=== PATIENT | female | born 1985 | race Caucasian/White ===

== ENCOUNTER 2017-04-02 13:10 | Emergency (ER) | payer SELFPAY ==
[~2017-04-02] VITALS: Ht 162.6 cm; Wt 70.3 kg
[~2017-04-02 13:10] MED LIST: AZTH250C PO; CLC500CT PO; DIPH25TA82 PO; FOLI0.4T2 PO; MULT-418 PO; NF-ESOM40C PO; OXYC-12 PO; PREN1TAB14 PO; PRM25T PO
[2017-04-02] MEDS ORDERED: NS IV 1000 ML 1,000 ML IV ONE (13:46)
[2017-04-02 13:49] LABS: BASOPHILS % (AUTO) 1 % (0-10); EOSINOPHILS # (AUTO) 0.5 10^3/uL (0.0-0.3); EOSINOPHILS % (AUTO) 8 % (0-10); LYMPHOCYTES # (AUTO) 2.1 X 10^3 (1.0-4.0); LYMPHOCYTES % (AUTO) 33 % (12-44); MEAN CORPUSCULAR HEMOGLOBIN 31 PG (25-34); MEAN CORPUSCULAR HGB CONC 34 G/DL (32-36); MEAN CORPUSCULAR VOLUME 92 FL (80-99); MEAN PLATELET VOLUME 10.6 FL (7.4-10.4); MONOCYTES # (AUTO) 0.5 X 10^3 (0.0-1.0); MONOCYTES % (AUTO) 7 % (0-12); NEUTROPHILS # (AUTO) 3.3 X 10^3 (1.8-7.8); NEUTROPHILS % (AUTO) 51 % (42-75); PLATELET COUNT 201 10^3/uL (130-400); RED BLOOD COUNT 4.46 10^6/uL (4.35-5.85); RED CELL DISTRIBUTION WIDTH 13.1 % (10.0-14.5); WHITE BLOOD COUNT 6.4 10^3/uL (4.3-11.0)
[2017-04-02 13:55] LABS: BILIRUBIN,URINE NEGATIVE (NEGATIVE); KETONES,URINE NEGATIVE (NEGATIVE); LEUKOCYTE ESTERASE ,URINE NEGATIVE (NEGATIVE); NITRITE,URINE NEGATIVE (NEGATIVE); PH,URINE 7 (5-9); PROTEIN,URINE NEGATIVE (NEGATIVE); UROBILINOGEN,URINE NORMAL (NORMAL)
[2017-04-02] MEDS ORDERED: KETOROLAC 30 MG/ML VIAL IVP ONE (14:00)
[2017-04-02] MEDS ORDERED: diphenhydrAMINE 50 MG/ML INJ (BENADRYL) IVP ONE (14:00)
[2017-04-02] MEDS ORDERED: PROCHLORPERAZINE 10 MG/2ML INJ (COMPAZINE) IV ONE (14:00)
[2017-04-02 14:11] LABS: ALANINE AMINOTRANSFERASE 15 U/L (0-55); ALBUMIN 4.2 GM/DL (3.2-4.5); ANION GAP 9 MMOL/L (5-14); ASPARTATE AMINO TRANSFERASE 23 U/L (5-34); BILIRUBIN,TOTAL 0.3 MG/DL (0.1-1.0); BLOOD UREA NITROGEN 15 MG/DL (7-18); BUN/CREATININE RATIO 18; CALCIUM 9.1 MG/DL (8.5-10.1); CARBON DIOXIDE 23 MMOL/L (21-32); CHLORIDE 109 MMOL/L (98-107); CREATININE SERUM 0.85 MG/DL (0.60-1.30); GFR ESTIMATED > 60; GLUCOSE 89 MG/DL (70-105); POTASSIUM 4.1 MMOL/L (3.6-5.0); SODIUM 141 MMOL/L (135-145); TOTAL PROTEIN 6.7 GM/DL (6.4-8.2)
--- NOTE | 2017-04-02 14:57 | Diagnostic Imaging Report ---
PROCEDURE: CT head without contrast. TECHNIQUE: Multiple contiguous axial images were obtained through the brain without the use of intravenous contrast. INDICATION: Headache. COMPARISON: 04/03/09. FINDINGS: The ventricles are normal in size, shape and position. There is no midline shift or mass effect. There is no hemorrhage or evidence acute ischemia. No cerebral edema identified. The bony calvarium, the visualized paranasal sinuses and the mastoids are normal. IMPRESSION: Negative CT head. Dictated by: Dictated on workstation # [id number]
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
[2017-04-02 15:47] VITALS: BP 113/80
== END 2017-04-02 15:47 | disposition home or self-care (01) ==
LOC: EDUNIT# 13:10 → ER 13:12
DX: R51 Headache (principal); F43.10 Post-traumatic stress disorder, unspecified; F17.210 Nicotine dependence, cigarettes, uncomplicated; Z87.42 Personal history of other diseases of the female genital tract; Z90.49 Acquired absence of other specified parts of digestive tract; Z98.51 Tubal ligation status; Z91.410 Personal history of adult physical and sexual abuse
CPT/HCPCS: 36415; 70450; 80053; 81000; 84703; 85025; 96361; 96374; 96375

== ENCOUNTER → 2017-10-12 | Outpatient (CLI) | payer MEDICAID ==
--- NOTE | 2017-10-12 14:33 | RADIOLOGY REPORT ---
NAME: FENG MIRANDA [facility] REC#: [id number] PT STATUS: REG CLI : 1985 PHYSICIAN: RONAL LIRIANO DO ADMIT DATE: 10/12/17/RAD CORRECTED Signed Date of Exam:10/12/17 US OB PREG [id number] INDICATION: survey. TECHNIQUE: Multiple real-time grayscale images were obtained over the gravid uterus. COMPARISON: None. FINDINGS: There is a single live fetus in a cephalic presentation. The placenta is posterior. The amniotic fluid volume is normal. heart rate was recorded at 153 beats per minute. The cervical length is 4.3 cm. survey demonstrates the kidneys, bladder and stomach to be unremarkable. brain is unremarkable. There is a four-chamber heart. There is a three-vessel cord with normal cord insertion. The spine is unremarkable. Biometrical measurements are as follows: Biparietal 4.6 cm, age 19 weeks 6 days. Head circumference 15.9 cm, age 19 weeks 6 days. Abdominal circumference 13.6 cm, age 19 weeks 1 days. Femur length 2.9 cm, age 19 weeks 0 days. Sonographic estimate age: 19 weeks 2 days. Sonographic estimated date of delivery: . Estimated Weight: 268 gm (+/- 39 gm). LMP percentile: 44%. heart rate: 153 beats per minute. number: 1 of 1. IMPRESSION: Single live IUP 19 weeks 2 days gestational age. The estimated date of delivery is 03/06/2018. Dictated by: Dictated on workstation # [id number] Dict: 10/12/17 1120 Trans: 10/12/17 1148 [id number] Interpreted by: JOSE ALFREDO BLANCAS MD Electronically signed by: JOSE ALFREDO BLANCAS MD 10/12/17 1148 MTDD
== END ==
LOC: RAD 09:52
PROVIDERS: ATTEND Obstetrics & Gynecology
DX: Z36.89 Encounter for other specified antenatal screening (principal); Z3A.19 19 weeks gestation of pregnancy
CPT/HCPCS: 76805

== ENCOUNTER 2017-11-02 16:58 | Outpatient (CLI) | payer MEDICAID ==
[~2017-11-02] VITALS: Ht 162.6 cm; Wt 76.2 kg
[2017-11-02 17:53] VITALS: BP 124/72
[2017-11-02] MEDS ORDERED: SERT50TA2 PO (18:07)
[2017-11-02] MEDS ORDERED: PNV11TAB5 PO (18:07)
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
[2017-11-02] MEDS ORDERED: INFLUENZA TRIvalent 2017-2018 0.5 ML/45 MCG SYR IM ONE (20:00)
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
== END 2017-11-02 19:25 | disposition home or self-care (01) ==
LOC: WSo 16:58 → LDRP 16:59 → WSo 19:25
PROVIDERS: ATTEND Obstetrics & Gynecology
DX: S39.91XA Unspecified injury of abdomen, initial encounter (principal); W50.1XXA Accidental kick by another person, initial encounter
CPT/HCPCS: 76815; 99213

== ENCOUNTER 2018-02-22 09:35 | Outpatient (CLI) | payer MEDICAID ==
[~2018-02-22] VITALS: Ht 162.6 cm; Wt 87.3 kg
[~2018-02-22 09:35] MED LIST changes: +PNV11TAB5 PO; +SERT50TA2 PO
[2018-02-22 09:40] VITALS: BP 127/82
--- NOTE | 2018-02-23 12:15 | Physician Query-Final Dx ---
MARQUITA HERNANDEZ 02/23/18 12:15pm: Clinic Account Progress/Dx Physician Query: Please give diagnosis Date of Service Feb 22, 2018 at 09:35 RONAL LIRIANO DO 02/24/18 2:48pm: Clinic Account Progress/Dx DIAGNOSIS: Diagnosis 37 + weeks of gestation previous section pelvic pain/incisional pain contractions MARQUITA HERNANDEZ Feb 23, 2018 12:15 pm RONAL LIRIANO DO Feb 24, 2018 2:48 pm
== END 2018-02-22 11:15 | disposition home or self-care (01) ==
LOC: LDRP 09:35 → WSo 09:35
PROVIDERS: ATTEND Obstetrics & Gynecology
DX: O47.1 False labor at or after 37 completed weeks of gestation (principal); O34.219 Maternal care for unspecified type scar from previous cesarean delivery; O99.89 Other specified diseases and conditions complicating pregnancy, childbirth and the puerperium; R10.2 Pelvic and perineal pain; Z3A.37 37 weeks gestation of pregnancy
CPT/HCPCS: 99213

== ENCOUNTER 2018-02-24 10:05 | Inpatient (IN) | payer MEDICAID ==
[~2018-02-24] VITALS: Ht 162.6 cm; Wt 87.1 kg
[2018-02-24 10:20] VITALS: BP 118/69
[2018-02-24] MEDS ORDERED: ceFAZolin INJECTION 1,000 MG in NS (IVPB) 50 ML IV ONE (10:45)
[2018-02-24] MEDS ORDERED: D5 LR IV SOLUTION 1,000 ML IV SCH ×2 (10:49→17:09)
[2018-02-24] MEDS ORDERED: D5 LR IV SOLUTION 1,000 ML IV ONE (10:53)
[2018-02-24] MEDS ORDERED: OMEP10CA4 PO ×2 (11:31)
[2018-02-24 11:35] LABS: BASOPHILS % (AUTO) 0 % (0-10); EOSINOPHILS # (AUTO) 0.3 10^3/uL (0.0-0.3); EOSINOPHILS % (AUTO) 3 % (0-10); HEMATOCRIT 35 % (35-52); HEMOGLOBIN 12.5 G/DL (11.5-16.0); LYMPHOCYTES % (AUTO) 18 % (12-44); MEAN CORPUSCULAR HEMOGLOBIN 31 PG (25-34); MEAN CORPUSCULAR HGB CONC 36 G/DL (32-36); MEAN CORPUSCULAR VOLUME 88 FL (80-99); MEAN PLATELET VOLUME 11.4 FL (7.4-10.4); MONOCYTES % (AUTO) 9 % (0-12); NEUTROPHILS # (AUTO) 7.5 X 10^3 (1.8-7.8); NEUTROPHILS % (AUTO) 70 % (42-75); PLATELET COUNT 154 10^3/uL (130-400); RED BLOOD COUNT 3.98 10^6/uL (4.35-5.85); RED CELL DISTRIBUTION WIDTH 13.6 % (10.0-14.5); WHITE BLOOD COUNT 10.8 10^3/uL (4.3-11.0)
[2018-02-24 14:45] VITALS: BP 118/67
[2018-02-24] MEDS ORDERED: ceFAZolin 1,000 MG (ANCEF) VIAL ONE (15:13)
[2018-02-24] MEDS ORDERED: NS (IVPB) 50 ML ONE (15:13)
[2018-02-24] MEDS ORDERED: METOCLOPRAMIDE INJ 10 MG/2 ML (REGLAN) ONE (15:13)
[2018-02-24] MEDS ORDERED: CITRIC ACID/SOB CIT (BICITRA) 30 ML UDC ONE (15:13)
[2018-02-24] MEDS ORDERED: raNItidine 50 MG/2 ML INJ (ZANTAC) ONE (15:14)
[2018-02-24 15:16] LABS: BILIRUBIN,URINE NEGATIVE (NEGATIVE); CLARITY,URINE CLEAR; COLOR,URINE YELLOW; GLUCOSE, URINE (UA) NEGATIVE (NEGATIVE); KETONES,URINE NEGATIVE (NEGATIVE); LEUKOCYTE ESTERASE ,URINE 3+ (NEGATIVE); NITRITE,URINE NEGATIVE (NEGATIVE); PH,URINE 7 (5-9); PROTEIN,URINE 1+ (NEGATIVE); UROBILINOGEN,URINE 1 MG/DL (NORMAL)
[2018-02-24 15:24] LABS: BACTERIA,URINE FEW /HPF; SQUAMOUS EPITHELIAL CELL,UR 0-2 /HPF; WBC,URINE 0-2 /HPF
[2018-02-24] MEDS ORDERED: fentaNYL INJECTION 100 MCG/2 ML AMP ONE (15:57)
[2018-02-24] MEDS ORDERED: LIDOCAINE PF 2% 5 ML (XYLOCAINE) VIAL ONE (15:57)
[2018-02-24] MEDS ORDERED: BUPIVACAINE 0.5% 30 ML (SENSORCAINE) VIAL ONE (15:57)
[2018-02-24] MEDS ORDERED: PHENYLEPHRINE 100 MCG/ML 10 ML (ANESTHESIA) SYR ONE (16:13)
[2018-02-24] MEDS ORDERED: OXYTOCIN/NORMAL SALINE 500 ML IV SCH (17:09)
[2018-02-24] MEDS ORDERED: TETANUS,DIPTH,PERTUSS P/F (BOOSTRIX) 0.5 ML VIAL IM SCH (17:15)
[2018-02-24] MEDS ORDERED: MEASLES,MUMPS,RUBELLA 1 EA INJ SC SCH (17:15)
--- NOTE | 2018-02-24 17:21 | Cesarean Section Operative ---
Procedure Procedure Note Pre-operative Diagnosis: Marybeth Batres is a 32 /Para 4/2 , Gestational Age 38 2/7 weeks, contractions, variable deceleration, risk reduction of ovarian cancer, history of previous section x 2. Post-operative Diagnosis: same, forehead presentation, chin anterior, vasa previa Procedure: Primary low transverse section, risk reduction tubal ligation Physician: RONAL LIRIANO Estimated blood loss: 500 mL Disposition: stable Findings: Viable male , Apgars 7/8, weight 7#, intact placenta, 3vc, very thin lower uterine segment with 2 cm window, forehead presentation, vasa previa, 4 cm right peritubal cyst and 2 small (subcentimeter peritubal cysts). Indications:Marybeth Batres is a 32 /Para 4/2 ,Gestational Age 38 2/ 7 weeks who presented for routine obstetrical visit and was complaining of contractions, had a variable deceleration so she was sent for repeat section. Has a history of section x desiring risk reduction of ovarian cancer. Procedure Details: The patient was seen in pre-op and the procedure was discussed with the patient in full, including the risks, benefits, and alternatives. All questions were answered. The patient was taken to the operating room and a time out was performed, verifying patient and procedure. After spinal anesthesia was placed by our anesthesia colleagues, the patient was placed in the dorsal supine with leftward tilt for uterine displacement.~ Her abdomen was then prepped and draped in the typical sterile fashion. A Pfannenstiel skin incision was made using a scalpel and carried down through the underlying fascia. The fascia was incised in the midline and tented up using Lidia clamps. On both the inferior and superior fascia side the rectus muscle was dissected off bluntly and sharply using Wills scissors. The peritoneum was identified and entered bluntly in the midline. This was then stretched laterally using manual strength. After entering the abdominal cavity and confirming lack of intraperitoneal adhesions, a large Ja retractor was placed and the lower uterine segment was visualized. the lower uterine segment was very thin. ~ A scalpel was utilized to make a low transverse uterine incision. The face was noted to be in the face up, forehead presentation. Amniotomy was performed with an Allis clamp with return of clear fluid. The infant's head was grasped and brought to the level of the incision. Fundal pressure was applied and infant was delivered with assistance of Silastic suction without difficulty. Mouth and nares were suctioned with bulb suction. After the umbilical cord was clamped and cut, the was handed off to the pediatric staff. A sample of cord blood was then obtained. The placenta was delivered intact via uterine massage. There was a vasa previa noted. The uterus was cleared of all clots and debris. The uterine incision was closed using 0 Vicryl in a running locked fashion. A second imbricated layer was placed using 0 Vicryl in a running fashion as well. T Again the hysterotomy site was examined and hemostasis was observed. The bilateral tubes and ovaries appeared as described above. A bilateral risk reduction salpingectomy was done. The tubes were elevated with rachna clamps bilaterally and the mesosalpinx incised with the Bovie. The LigaSure was used to remove the tubes bilaterally, transecting and ligating. The uterus was placed back into the abdominal cavity and abdominal gutters were cleared of all clots and debris. A final check of the uterine incision showed it to be hemostatic. The peritoneum was closed using 3-0 Vicryl in a running fashion. The fascia was closed with 0 Vicryl in a running fashion. The subcutaneous space was hemostatic, and irrigated. The subcutaneous space was closed with 3-0 Vicryl in several single interrupted stitches. The skin was then closed using 4-0 Monocryl in a running subcuticular fashion. The skin edges were reapproximated together with [place] and were hemostatic. A pressure dressing was applied. All sponge, lap and needle counts were correct at the end of the procedure per nursing. Vitals - Labs Labs Laboratory Tests 02/24/18 11:15: White Blood Count 10.8, Red Blood Count 3.98L, Hemoglobin 12.5, Hematocrit 35, Mean Corpuscular Volume 88, Mean Corpuscular Hemoglobin 31, Mean Corpuscular Hemoglobin Concent 36, Red Cell Distribution Width 13.6, Platelet Count 154, Mean Platelet Volume 11.4H, Neutrophils (%) (Auto) 70, Lymphocytes (%) (Auto) 18 , Monocytes (%) (Auto) 9, Eosinophils (%) (Auto) 3, Basophils (%) (Auto) 0, Neutrophils # (Auto) 7.5, Lymphocytes # (Auto) 2.0, Monocytes # (Auto) 1.0, Eosinophils # (Auto) 0.3, Basophils # (Auto) 0.0 02/24/18 14:30: Urine Color YELLOW, Urine Clarity CLEAR, Urine pH 7, Urine Specific [place] 1.015L, Urine Protein 1+H, Urine Glucose (UA) NEGATIVE, Urine Ketones NEGATIVE, Urine Nitrite NEGATIVE, Urine Bilirubin NEGATIVE, Urine Urobilinogen 1, Urine Leukocyte Esterase 3+H, Urine RBC (Auto) NEGATIVE, Urine RBC NONE, Urine WBC 0-2 , Urine Squamous Epithelial Cells 0-2, Urine Crystals NONE, Urine Bacteria FEWH , Urine Casts NONE, Urine Mucus NEGATIVE, Urine Culture Indicated NO RONAL LIRIANO DO Feb 24, 2018 17:21
[2018-02-24] MEDS: KETOROLAC 30 MG/ML VIAL IVP SCH (18:50)
[2018-02-24] MEDS ORDERED: LACTATED RINGERS 1,000 ML IV PRN (20:09)
[2018-02-24] MEDS: DOCUSATE SODIUM 100 MG (COLACE) CAP PO SCH (20:34)
[2018-02-24] MEDS: HYDROcodone/APAP 5 MG/325 MG (LORTAB) TAB PO PRN (20:35)
[2018-02-24 21:47] VITALS: BP 114/67
[2018-02-24] MEDS ORDERED: CATHETER FLUSH 10 ML SYR IV SCH (22:00)
[2018-02-25] MEDS: HYDROcodone/APAP 5 MG/325 MG (LORTAB) TAB PO PRN ×4 (00:37→19:00)
[2018-02-25] MEDS: KETOROLAC 30 MG/ML VIAL IVP SCH ×2 (00:53→06:54)
[2018-02-25 02:36] VITALS: BP 113/65
[2018-02-25 06:18] LABS: BASOPHILS % (AUTO) 0 % (0-10); EOSINOPHILS # (AUTO) 0.3 10^3/uL (0.0-0.3); EOSINOPHILS % (AUTO) 2 % (0-10); HEMATOCRIT 28 % (35-52); HEMOGLOBIN 10.1 G/DL (11.5-16.0); LYMPHOCYTES # (AUTO) 1.9 X 10^3 (1.0-4.0); LYMPHOCYTES % (AUTO) 17 % (12-44); MEAN CORPUSCULAR HEMOGLOBIN 32 PG (25-34); MEAN CORPUSCULAR HGB CONC 36 G/DL (32-36); MEAN CORPUSCULAR VOLUME 90 FL (80-99); MONOCYTES # (AUTO) 1.3 X 10^3 (0.0-1.0); MONOCYTES % (AUTO) 11 % (0-12); NEUTROPHILS # (AUTO) 7.8 X 10^3 (1.8-7.8); NEUTROPHILS % (AUTO) 69 % (42-75); PLATELET COUNT 121 10^3/uL (130-400); RED BLOOD COUNT 3.16 10^6/uL (4.35-5.85); RED CELL DISTRIBUTION WIDTH 13.3 % (10.0-14.5); WHITE BLOOD COUNT 11.3 10^3/uL (4.3-11.0)
[2018-02-25 06:27] VITALS: BP 103/65
--- NOTE | 2018-02-25 08:18 | Anesthesia-Regional Post-Op ---
Regional Patient Condition Mental Status: Alert, Oriented x3 Circulation: Same as Pre-Op Headache: Absent Sensation: Full Recovery Motor Block: Absent Post Op Complications Complications None Follow Up Care/Instructions Patient Instructions None needed. Anesthesia/Patient Condition Patient is doing well, ambulating, sore which is expected, has stable vital signs, no apparent adverse anesthesia problems. ROSANNA CASPER DO Feb 25, 2018 08:17
[2018-02-25] MEDS: DOCUSATE SODIUM 100 MG (COLACE) CAP PO SCH ×2 (09:29→21:29)
[2018-02-25 09:37] VITALS: BP 104/68
--- NOTE | 2018-02-25 09:58 | Postpartum Progress Note ---
Post Op Post-operative Day #1 s/pRLTCS, RRS Subjective: Patient is without complaints. Ambulating, voiding after welch removed. Tolerating a regular diet without nausea or vomiting. Normal lochia. Pain is well controlled with oral pain medications. Passing flatus. breast feeding. TAP block postop Objective: Laboratory Tests Test 02/24/18 11:15 02/24/18 14:30 02/25/18 06:05 Range/Units White Blood Count 10.8 11.3 H 4.3-11.0 10^3/uL Red Blood Count 3.98 L 3.16 L 4.35-5.85 10^6/uL Hemoglobin 12.5 10.1 L 11.5-16.0 G/DL Hematocrit 35 28 L 35-52 % Mean Corpuscular Volume 88 90 80-99 FL Mean Corpuscular Hemoglobin 31 32 25-34 PG Mean Corpuscular Hemoglobin Concent 36 36 32-36 G/DL Red Cell Distribution Width 13.6 13.3 10.0-14.5 % Platelet Count 154 121 L 130-400 10^3/uL Mean Platelet Volume 11.4 H 11.0 H 7.4-10.4 FL Neutrophils (%) (Auto) 70 69 42-75 % Lymphocytes (%) (Auto) 18 17 12-44 % Monocytes (%) (Auto) 9 11 0-12 % Eosinophils (%) (Auto) 3 2 0-10 % Basophils (%) (Auto) 0 0 0-10 % Neutrophils # (Auto) 7.5 7.8 1.8-7.8 X 10^3 Lymphocytes # (Auto) 2.0 1.9 1.0-4.0 X 10^3 Monocytes # (Auto) 1.0 1.3 H 0.0-1.0 X 10^3 Eosinophils # (Auto) 0.3 0.3 0.0-0.3 10^3/uL Basophils # (Auto) 0.0 0.0 0.0-0.1 10^3/uL Urine Color YELLOW Urine Clarity CLEAR Urine pH 7 5-9 Urine Specific [place] 1.015 L 1.016-1.022 Urine Protein 1+ H NEGATIVE Urine Glucose (UA) NEGATIVE NEGATIVE Urine Ketones NEGATIVE NEGATIVE Urine Nitrite NEGATIVE NEGATIVE Urine Bilirubin NEGATIVE NEGATIVE Urine Urobilinogen 1 NORMAL MG/DL Urine Leukocyte Esterase 3+ H NEGATIVE Urine RBC (Auto) NEGATIVE NEGATIVE Urine RBC NONE /HPF Urine WBC 0-2 /HPF Urine Squamous Epithelial Cells 0-2 /HPF Urine Crystals NONE /LPF Urine Bacteria FEW H /HPF Urine Casts NONE /LPF Urine Mucus NEGATIVE /LPF Urine Culture Indicated NO 02/25/18 02/25/18 02:36 06:27 Temp 97.9 98.8 Pulse 59 61 Resp 16 20 B/P (MAP) 113/65 (81) 103/65 (78) Pulse Ox 98 97 O2 Delivery Room Air Room Air 02/25/18 00:00 Intake Total 550 ml Output Total 175 ml Balance 375 ml Physical Exam: General - Alert and oriented, no apparent distress Abdomen - Soft, appropriately tender to palpation, non-distended, fundus firm at umbilicus Incision - clean, dry and intact; no erythema or induration, no drainage Extremities - no edema, negative Rissa's bilaterally Assessment: 1. post-operative day # 1, status post RLTCS/RRS. Recovering well, hemodynamically stable Plan: Routine post-operative care. Encourage breast feeding. Encourage ambulation. VTE prophylaxis: SCDs. Ferrous sulfate supplementation. Plan for discharge tomorrow Vitals - Labs Vital Signs - I&O Vital Signs Date Time Temp Pulse Resp B/P (MAP) Pulse Ox O2 Delivery O2 Flow Rate FiO2 02/25/18 06:27 98.8 61 20 103/65 (78) 97 Room Air 02/25/18 02:36 97.9 59 16 113/65 (81) 98 Room Air 02/24/18 21:47 98.1 57 18 114/67 (83) 97 Room Air 02/24/18 14:45 97.1 60 20 118/67 (84) 02/24/18 10:20 97.2 81 20 118/69 (85) I & O 02/25/18 07:00 Intake Total 1550 ml Output Total 175 ml Balance 1375 ml Labs Laboratory Tests 02/24/18 11:15: White Blood Count 10.8, Red Blood Count 3.98L, Hemoglobin 12.5, Hematocrit 35, Mean Corpuscular Volume 88, Mean Corpuscular Hemoglobin 31, Mean Corpuscular Hemoglobin Concent 36, Red Cell Distribution Width 13.6, Platelet Count 154, Mean Platelet Volume 11.4H, Neutrophils (%) (Auto) 70, Lymphocytes (%) (Auto) 18 , Monocytes (%) (Auto) 9, Eosinophils (%) (Auto) 3, Basophils (%) (Auto) 0, Neutrophils # (Auto) 7.5, Lymphocytes # (Auto) 2.0, Monocytes # (Auto) 1.0, Eosinophils # (Auto) 0.3, Basophils # (Auto) 0.0 02/24/18 14:30: Urine Color YELLOW, Urine Clarity CLEAR, Urine pH 7, Urine Specific [place] 1.015L, Urine Protein 1+H, Urine Glucose (UA) NEGATIVE, Urine Ketones NEGATIVE, Urine Nitrite NEGATIVE, Urine Bilirubin NEGATIVE, Urine Urobilinogen 1, Urine Leukocyte Esterase 3+H, Urine RBC (Auto) NEGATIVE, Urine RBC NONE, Urine WBC 0-2 , Urine Squamous Epithelial Cells 0-2, Urine Crystals NONE, Urine Bacteria FEWH , Urine Casts NONE, Urine Mucus NEGATIVE, Urine Culture Indicated NO 02/25/18 06:05: White Blood Count 11.3H, Red Blood Count 3.16L, Hemoglobin 10.1L, Hematocrit 28L , Mean Corpuscular Volume 90, Mean Corpuscular Hemoglobin 32, Mean Corpuscular Hemoglobin Concent 36, Red Cell Distribution Width 13.3, Platelet Count 121L, Mean Platelet Volume 11.0H, Neutrophils (%) (Auto) 69, Lymphocytes (%) (Auto) 17 , Monocytes (%) (Auto) 11, Eosinophils (%) (Auto) 2, Basophils (%) (Auto) 0, Neutrophils # (Auto) 7.8, Lymphocytes # (Auto) 1.9, Monocytes # (Auto) 1.3H, Eosinophils # (Auto) 0.3, Basophils # (Auto) 0.0 RONAL LIRIANO DO Feb 25, 2018 09:58
[2018-02-25] MEDS ORDERED: ACHD5005 PO ×2 (10:01)
[2018-02-25] MEDS ORDERED: IBUP-844 PO ×2 (10:01)
[2018-02-25] MEDS ORDERED: DOCU100C37 PO ×2 (10:02)
--- NOTE | 2018-02-25 10:04 | Discharge Inst-Women's Service ---
Discharge Inst-Women's Serv Depart Medication/Instructions New, Converted or Re-Newed RX: RX on Chart Final Diagnosis labor variable deceleration previous section ovarian cancer risk reduction vasa previa forehead presentation Consults/Follow Up Additional Follow Up: Yes (1 week for incision check with Isidro/Martha and 6 week pp exam) Activity Activity: Activity as Tolerated Driving Instructions: No Driving for 1 Week NO SMOKING: NO SMOKING Nothing Inside Vagina: No Douching, No [place], No Tampons Diet Discharge Diet: No Restrictions Symptoms to Report to : Swelling Increased, Bleeding Excessive, Pain Increased, Fever Over 101 Degrees F, Vaginal Bleeding Increase, Vaginal Discharge Foul For Any Problems or Questions: Contact Your Physician Skin/Wound Care Infection Signs and Symptoms: Increased Redness, Foul Odor of Wound, Increased Drainage, Skin Itchy or Has a Rash, Increased Swelling, Temperature Above 101 F Operative Area Clean and Dry: Keep Incision Clean/Dry Stitches/Kenneth/Dermabond: Dermabond Bathing Instructions: RONAL Lopez DO Feb 25, 2018 10:04
[2018-02-25] MEDS ORDERED: IBUPROFEN 600 MG (MOTRIN) TAB PO ONE (12:52)
[2018-02-25 13:16] VITALS: BP 102/65
[2018-02-25] MEDS: IBUPROFEN 600 MG (MOTRIN) TAB PO SCH ×2 (13:16→18:59)
[2018-02-25 16:07] VITALS: BP 98/64
[2018-02-25 21:51] VITALS: BP 112/63
[2018-02-26] MEDS: IBUPROFEN 600 MG (MOTRIN) TAB PO SCH ×2 (00:51→06:47)
[2018-02-26] MEDS: HYDROcodone/APAP 5 MG/325 MG (LORTAB) TAB PO PRN ×3 (00:52→10:32)
[2018-02-26 04:30] VITALS: BP 111/72
--- NOTE | 2018-02-26 07:44 | Progress Note-Standard ---
Standard Progress Note Progress Notes/Assess & Plan Date Seen by Provider: Feb 26, 2018 Time Seen by Provider: 07:43 Progress/Assessment & Plan This patient is without complaint. She is ambulating, voiding, tolerating oral intake well has good pain control. Patient denies chest pain, denies shortness of breath, denies nausea vomiting, and denies headache. Patient is requesting discharge home. Vital Signs 02/25/18 02/26/18 16:07 04:30 Temp 98.1 Pulse 69 Resp 16 B/P (MAP) 111/72 (85) Pulse Ox 100 O2 Delivery Room Air Vital signs are stable. Patient is afebrile. The abdomen is benign. Extremities show no clubbing cyanosis. There is no Homans sign. Assessment and plan day number 2 status post delivery doing well. Plan is for discharge home with follow-up in clinic JULIO SANDERS MD Feb 26, 2018 7:44 am
[2018-02-26 10:30] VITALS: BP 113/68
[2018-02-26] MEDS: DOCUSATE SODIUM 100 MG (COLACE) CAP PO SCH (10:32)
== END 2018-02-26 11:25 | disposition home or self-care (01) | DRG 765 ==
LOC: LDRP 10:05
PROVIDERS: ADMIT Obstetrics & Gynecology; ATTEND Obstetrics & Gynecology
PROC: 0UT70ZZ Resection of Bilateral Fallopian Tubes, Open Approach (ICD-10-PCS; 2018-02-24)
PROC: 10D00Z1 Extraction of Products of Conception, Low, Open Approach (ICD-10-PCS; principal; 2018-02-24 15:59)
DX: O34.211 Maternal care for low transverse scar from previous cesarean delivery (principal); O90.81 Anemia of the puerperium; D62 Acute posthemorrhagic anemia; O76 Abnormality in fetal heart rate and rhythm complicating labor and delivery; O69.4XX0 Labor and delivery complicated by vasa previa, not applicable or unspecified; O32.3XX0 Maternal care for face, brow and chin presentation, not applicable or unspecified; O26.893 Other specified pregnancy related conditions, third trimester; N83.8 Other noninflammatory disorders of ovary, fallopian tube and broad ligament; Z40.03 Encounter for prophylactic removal of fallopian tube(s); Z3A.38 38 weeks gestation of pregnancy; Z37.0 Single live birth; Z23 Encounter for immunization
CPT/HCPCS: 36415; 81000; 85025; 86850; 86900; 86901; 87081; 88302; 88307; 90715; 94664

== ENCOUNTER → 2020-05-01 | Outpatient (CLI) | payer BC, MEDICAID ==
[~2020-05-01] MED LIST changes: +ACHD5005 PO; +DOCU100C37 PO; +IBUP-844 PO; +OMEP10CA5 PO
--- NOTE | 2020-05-01 16:40 | Diagnostic Imaging Report ---
PROCEDURE: US Non-ob pelvis comp/trans. TECHNIQUE: Multiple realtime grayscale images were obtained of the pelvis in various projections endovaginally. Transabdominal imaging was also performed. INDICATION: Dyspareunia, pelvic pain. COMPARISON: There are no prior pelvic ultrasound examinations available for comparison. FINDINGS: The uterus is nongravid, anteverted, and not enlarged measuring 7.8 x 4.7 x 5.8 cm. The endometrial lining is thickened measuring 8 mm (normal 5 mm or less). This finding is nonspecific, however. Correlation with the patient's menstrual cycle would be recommended. There is no focal mass involving the uterus to suggest a fibroid. Both ovaries were identified. There is good blood flow to each ovary. There is a 2.8 x 2.3 x 2.4 cm avascular hypoechoic area with internal echoes associated with the right ovary. I suspect that this is a cyst which has been complicated by infection and/or hemorrhage. The left ovary is generally unremarkable. A small amount of free fluid is seen. There is no solid pelvic mass noted. IMPRESSION: 1. There is a 2.8 x 2.3 x 2.4 cm hypoechoic lesion with internal echoes associated with the right ovary. Most likely, this is an ovarian cyst which has been complicated by infection and/or hemorrhage. There is also a small amount of free fluid present. If further evaluation of this finding is desired, then a short-term (4-6 week) follow-up ultrasound exam would be recommended. 2. There is no acute pelvic abnormality noted, otherwise. Dictated by: Dictated on workstation # [id number]
== END ==
LOC: RAD 15:15
PROVIDERS: ATTEND Nurse Practitioner Women's Health
DX: N94.10 Unspecified dyspareunia (principal); N94.9 Unspecified condition associated with female genital organs and menstrual cycle; N83.8 Other noninflammatory disorders of ovary, fallopian tube and broad ligament
CPT/HCPCS: 76830; 76856

== ENCOUNTER → 2021-04-22 | Outpatient (CLI) | payer BC | LOC: LABNPT 06:25 | PROVIDERS: ATTEND Family Medicine | DX: U07.1 COVID-19 (principal) | CPT/HCPCS: 87635 ==

== ENCOUNTER → 2021-06-04 | Outpatient (CLI) | payer BC ==
--- NOTE | 2021-06-04 13:12 | Diagnostic Imaging Report ---
INDICATION: Chest pain. PA and lateral views of the chest are obtained with comparison made to study of 10/27/2012 FINDINGS: Heart size and pulmonary vascularity are within normal limits, and the lungs are clear, bilaterally. IMPRESSION: Unremarkable chest. Dictated by: Dictated on workstation # [id number]
--- NOTE | 2021-06-04 14:00 | Diagnostic Imaging Report ---
EXAM: T-SPINE 3V-AP, LAT, SWIMMERS INDICATION: Back and chest pain. COMPARISON: None. FINDINGS: Mild right apex lower thoracic curvature. Mild to moderate degenerative endplate changes greatest at T4-T5. There may also be subtle height loss of the T4 vertebral body, age indeterminate. Visualized lung lagos are clear. Cholecystectomy clips. IMPRESSION: 1. Mild to moderate degenerative endplate changes are greatest at T4-T5. 2. There is also possible subtle height loss of the T4 vertebral body which is age indeterminate. This could be better evaluated with MRI if clinically warranted. Dictated by: Dictated on workstation # [id number]
== END ==
LOC: RAD 12:36
PROVIDERS: ATTEND Nurse Practitioner Family
DX: M47.814 Spondylosis without myelopathy or radiculopathy, thoracic region (principal)
CPT/HCPCS: 71046; 72072

== ENCOUNTER → 2021-06-08 | Outpatient (CLI) | payer BC ==
--- NOTE | 2021-06-08 19:32 | Diagnostic Imaging Report ---
INDICATION: Back injury. TECHNIQUE: Multiplanar, multisequence imaging of the thoracic spine was performed without contrast. FINDINGS: Curvature and alignment of the thoracic spine is normal. Vertebral body heights appear well maintained. There appears to be a hemangiolipoma within the T7 vertebral body. Remaining vertebrae are unremarkable. No fractures are identified. Some mild mid thoracic degenerative changes with mild disc desiccation. No focal disc herniation is seen. Paraspinous tissues are unremarkable. The thoracic spinal cord demonstrates normal homogeneous signal intensity and normal morphology. IMPRESSION: Essentially unremarkable MRI of the thoracic spine. No acute fracture is detected. Dictated by: Dictated on workstation # [id number]
== END ==
LOC: RAD 12:30
PROVIDERS: ATTEND Nurse Practitioner Family
DX: S29.9XXA Unspecified injury of thorax, initial encounter (principal); X58.XXXA Exposure to other specified factors, initial encounter
CPT/HCPCS: 72146

== ENCOUNTER → 2021-08-24 | Outpatient (CLI) | payer BC ==
--- NOTE | 2021-08-24 09:31 | Diagnostic Imaging Report ---
PROCEDURE: MR imaging cervical spine without contrast. TECHNIQUE: Multiplanar, multisequence MR imaging of the cervical spine was performed without contrast. INDICATION: History of previous trauma, now complaining of neck pain. Correlation limited to CT of neck 04/03/2009. FINDINGS: Images limited to sagittal sequences, cervical body heights maintained, the alignment anatomic, the marrow signal intensity normal. The cervical spinal cord has a normal volume morphology and signal intensity. Disc bulge and desiccation at C6-C7 and to a lesser extent C5-C6 present. At the 6-7 level, there is mild left and moderate right foraminal narrowing. At the 5-6 level no canal or foraminal stenosis, the remaining discs well hydrated and nondisplaced, ligamentous structures intact. No bone contusion, marrow edema or fracture pattern. The ligamentous structures intact. No acute epidural or intrathecal abnormality. IMPRESSION: Lower lobe cervical disc bulges with resultant foraminal stenosis at C6-C7, normal spinal cord, normal alignment, normal marrow signal intensity. No acute bony pathology. Dictated by: Dictated on workstation # [id number]
== END ==
LOC: RAD 08:45
PROVIDERS: ATTEND Physician Assistant
DX: M50.223 Other cervical disc displacement at C6-C7 level (principal); M48.02 Spinal stenosis, cervical region
CPT/HCPCS: 72141

== ENCOUNTER 2021-10-06 05:32 | Outpatient (CLI) | payer BC ==
[~2021-10-06] VITALS: Ht 163 cm; Wt 82.0 kg
[2021-10-07] MEDS ORDERED: BACL10TA PO (15:25)
== END 2021-10-07 15:43 | disposition home or self-care (01) ==
LOC: PREOP 05:32
PROVIDERS: ATTEND Obstetrics & Gynecology
DX: Z01.818 Encounter for other preprocedural examination (principal)

== ENCOUNTER 2021-10-13 06:05 | Day surgery (SDC) | payer BC ==
[2021-10-13] VITALS (11 sets, daily range): BP systolic 104–126; BP diastolic 55–98
[~2021-10-13] VITALS: Ht 163 cm; Wt 82.0 kg
[~2021-10-13 06:05] MED LIST changes: +BACL10TA PO
[2021-10-13] MEDS ORDERED: metroNIDAZOLE 500MG/100ML IVPB 100 ML IV NR (06:30)
[2021-10-13] MEDS ORDERED: ceFAZolin 2 GM IV Premixed 50 ML IV NR (06:30)
[2021-10-13] MEDS: LACTATED RINGERS 1,000 ML IV PRN ×4 (06:38→09:42)
[2021-10-13 06:49] LABS: HEMATOCRIT 38 % (35-52); HEMOGLOBIN 13.1 g/dL (11.5-16.0); MEAN CORPUSCULAR HEMOGLOBIN 31 pg (25-34); MEAN CORPUSCULAR HGB CONC 35 g/dL (32-36); MEAN CORPUSCULAR VOLUME 89 fL (80-99); MEAN PLATELET VOLUME 10.1 fL (9.0-12.2); PLATELET COUNT 216 10^3/uL (130-400); WHITE BLOOD COUNT 5.8 10^3/uL (4.3-11.0)
[2021-10-13] MEDS ORDERED: ROCURONIUM 10 MG/ML 5 ML SYRINGE IV ONE (07:02)
[2021-10-13] MEDS ORDERED: LIDOCAINE PF 2% 5 ML (XYLOCAINE) VIAL ONE (07:02)
[2021-10-13] MEDS ORDERED: MIDAZOLAM 2 MG/2 ML (VERSED) VIAL ONE (07:02)
[2021-10-13] MEDS ORDERED: proPOfol 200 MG/20 ML (DIPRIVAN) VIAL IV ONE (07:02)
[2021-10-13] MEDS ORDERED: fentaNYL INJ 100 MCG/2 ML AMP ONE ×2 (07:02→09:22)
[2021-10-13] MEDS ORDERED: ONDANSETRON 4 MG/2 ML (SDV) Z0FRAN ONE (07:02)
[2021-10-13] MEDS ORDERED: LIDOCAINE/EPI 1%-1:200,000 (XYLOCAINE) 30 ML VIAL ONE (07:05)
[2021-10-13 07:30] LABS: BILIRUBIN,URINE NEGATIVE (NEGATIVE); CLARITY,URINE CLOUDY; COLOR,URINE YELLOW; GLUCOSE, URINE (UA) NEGATIVE (NEGATIVE); KETONES,URINE NEGATIVE (NEGATIVE); LEUKOCYTE ESTERASE ,URINE NEGATIVE (NEGATIVE); NITRITE,URINE NEGATIVE (NEGATIVE); PH,URINE 8.5 (5-9); PROTEIN,URINE NEGATIVE (NEGATIVE)
[2021-10-13 07:38] LABS: AMORPHOUS SEDIMENT,UR MOD AMOR PHOSPHATE /LPF; BACTERIA,URINE NEGATIVE /HPF
--- NOTE | 2021-10-13 07:46 | Progress Note-Pre Operative ---
Pre-Operative Progress Note H&P Reviewed The H&P was reviewed, patient examined and no changes noted. LMP 10/10/2021 Date Seen by Provider: Oct 13, 2021 Time Seen by Provider: 07:30 Date H&P Reviewed: Oct 13, 2021 Time H&P Reviewed: 07:30 Pre-Operative Diagnosis: chronic pelvic pain, endometriosis RONAL LIRIANO DO Oct 13, 2021 07:46
[2021-10-13] MEDS ORDERED: GLYCOPYRROLATE 0.2 MG/ML (ROBINUL) 2 ML VIAL ONE (09:13)
[2021-10-13] MEDS ORDERED: NEOSTIGMINE 3 MG/3 ML VIAL ONE (09:13)
[2021-10-13] MEDS ORDERED: KETOROLAC 30 MG/ML VIAL ONE (09:28)
[2021-10-13] MEDS ORDERED: SEVOFLURANE (ULTANE) 15 ML INHAL SOLN ONE (09:28)
[2021-10-13] MEDS: KETOROLAC 30 MG/ML VIAL IV SCH ×2 (09:28→16:24)
[2021-10-13] MEDS ORDERED: NALOXONE 0.4 MG/ML 1 ML (NARCAN) VIAL IV PRN (09:30)
[2021-10-13] MEDS ORDERED: LACTATED RINGERS 1,000 ML IV SCH (09:30)
[2021-10-13] MEDS ORDERED: SIMETHICONE 80 MG (MYLICON) CHEW PO PRN (09:30)
[2021-10-13] MEDS ORDERED: morphine INJ 4 MG/ML 1 ML (VIAL/SYRINGE) IV PRN (09:30)
[2021-10-13] MEDS ORDERED: CHLORASEPTIC LOZENGE MM PRN (09:30)
[2021-10-13] MEDS ORDERED: ONDANSETRON 4 MG (ZOFRAN) ORAL DISSOLVE TAB PO PRN (09:30)
--- NOTE | 2021-10-13 09:37 | Operative Report ---
Operative Report Date of Procedure/Surgery Oct 13, 2021 Surgeon (s) RONAL LIRIANO DO Veterinary [employer] Serum Inspector (s): NA Post-Operative Diagnosis chronic pelvic pain endometriosis Procedure Performed RaTH, Description of Procedure Anesthesia Type: General Estimated blood loss (mL): minimal Specimen(s) collected/removed uterus Description of the Procedure After informed consent was obtained, patient was taken into the operating room where general anesthetic was found to be adequate. She was prepped and draped in the usual sterile fashion in the dorsal lithotomy position. A Simpson catheter was placed. A speculum was placed in the vagina. The cervix was visualized and the anterior lip was grasped with a sharp toothed tenaculum. The uterus was sounded and depth was approximately 8 centimeters. I placed the R mckayla device (8 cm) and a 3.5 cm collar was advanced over the cervix. I inserted the Lupis without difficulty, inflating the balloon and securing it around the fornix of the cervix. The collar was then secured with sutures at 12 o'clock. Attention was then turned to the patient's abdomen. The skin was injected with 0.25% Marcaine. A supraumbilical incision was made about 8 mm in length. A Veress needle was inserted and I confirmed intraabdominal placement with a drop in pressure and the saline drop test. The opening pressure was 6 mmHg. I then insufflated the abdomen to a maximum of 15 mmHg with warmed CO2 gas. I placed an additional 8 mm trocar approximately 15 cm lateral to the umbilicus on the left and another on the right. These were all 8 mm trocars. These were placed under direct visualization of the laparoscope. 0.25% Marcaine was injected prior to placement of all trocars. When all placements were confirmed, the patient was placed in steep Trendelenburg allowing adequate visualization and the robot was brought in for docking. The docking was accomplished without difficulty. I then took over the command of the robot utilizing the synchroseal and monopolar karen. The patient had previously had bilateral salpingectomy at the time of her previous section. I then was able to visualize the round ligaments bilaterally, grasped and then cauterized with bipolar cautery and then cut with my karen. I then grasped the uterine ovarian ligaments separately bilaterally and cauterized and cut with the synchroseal. I then moved my dissection to the posterior leaves of the broad ligament. I dissected the posterior leaves of the broad ligament off the uterine arteries skeletonizing them bilaterally. I then took a second clamp with the synchroseal and with the karen, transected the vessels away from the lateral aspect to the cervical stroma. There were vesicouterine adhesions from the previous sections. I dissected the anterior peritoneum off the lower uterine segment. I continually pushed the bladder back and I took excessively great care and I was eventually able to dissect the vesicouterine peritoneum off the lower uterine segment. I then dissected in a V fashion towards the midline between the uterosacral ligaments. This allowed me to skeletonize the uterine vessels bilaterally. The balloon on the LUPIS was insufflated. This allowed me to see the LUPIS circumferentially. I then performed a colpotomy anteriorly and then amputate with cervix away from the vaginal fornix. I then continued the colpotomy circumferentially. The uterus was removed through the vagina. The physician office assistant left a sponge in the vagina to keep the pneumoperitoneum. I then began closure of the vaginal cuff. I closed the apices of the vaginal cu ff with 2-0 Vicryl V lock sutures with a colposuspension through the uterosacral ligaments. This suspended the apices of the vaginal cuff. I extended this to the midline from both sides and overlapped the V lock sutures in the midline. Excellent closure is noted and hemostasis is achieved. All the needles were removed from the patient's abdomen. Now, the robotic instruments were removed and the robot was docked back to laparoscopy. The pelvis was irrigated. There was no active bleeding noted. Bilateral ureters were seen the entire time during the surgery and were peristalsing. There was no excessive bleeding noted. The trocars were removed under direct visualization. The laparoscopic sites were visualized and found to be hemostatic. The trocar sites were injected with 0.25% Marcaine. The skin incisions were closed with 4-0 Monocryl in a subcuticular fashion and then with Dermabond. Op sites were placed over the incision sites. The instruments were removed from the vagina and I noted there were no abrasions. Sponge, lap, needle and instrument counts correct times two. Patient was awakened and taken to recovery in a stable condition. Findings of the Procedure boggy enlarged uterus, vesicouterine scarring from previous sections history of bilateral salpingectomy previous appendectomy with appropriate scarring . Allergies and Home Medications Allergies Coded Allergies: No Known Drug Allergies (Verified , 04/02/17) Patient Home Medication List Home Medication List Reviewed: Yes Acetaminophen (Acetaminophen) 500 Mg Tablet, 1,000 MG PO Q8HR Prescribed by: RONAL LIRIANO on 10/13/21 1303 Baclofen (Baclofen) 10 Mg Tablet, 10 MG PO PRN, (Reported) Entered as Reported by: OG GARCIA on 10/07/21 1525 Ibuprofen (Ibu) 600 Mg Tablet, 600 MG PO Q6H Prescribed by: RONAL LIRIANO on 10/13/21 1303 Simethicone (Mi-Acid) 80 Mg Tab.chew, 80 MG PO Q2HR PRN for gas Prescribed by: RONAL LIRIANO on 10/13/21 1303 RONAL LIRIANO DO Oct 13, 2021 09:37
[2021-10-13] MEDS ORDERED: ONDANSETRON 4 MG/2 ML (SDV) Z0FRAN IVP PRN (09:45)
[2021-10-13] MEDS ORDERED: HYDROmorphone 2 MG/ML VIAL (DILAUDID) IV ONE (09:45)
[2021-10-13] MEDS ORDERED: MEPERIDINE (DEMEROL) INJ 50 MG/ML IVP ONE (09:45)
[2021-10-13] MEDS ORDERED: PROMETHAZINE INJ 25 MG/ML (PHENERGAN) AMP IVP ONE (09:45)
[2021-10-13] MEDS ORDERED: HYDROmorphone 2 MG/ML VIAL (DILAUDID) ONE (09:50)
[2021-10-13] MEDS ORDERED: PROMETHAZINE INJ 25 MG/ML (PHENERGAN) AMP ONE (09:50)
--- NOTE | 2021-10-13 09:58 | Anesthesia-General Post-Op ---
General Patient Condition Mental Status/LOC: Same as Preop Cardiovascular: Satisfactory Nausea/Vomiting: Absent Respiratory: Satisfactory Pain: Controlled Complications: Absent Post Op Complications Complications None Follow Up Care/Instructions Patient Instructions None needed. Anesthesia/Patient Condition Patient Condition Patient is doing well, no complaints, stable vital signs, no apparent adverse anesthesia problems. No complications reported per nursing. TUAN LIU CRNA Oct 13, 2021 09:58
[2021-10-13] MEDS ORDERED: IBUP-844 PO (13:03)
[2021-10-13] MEDS ORDERED: ACET-93 PO (13:03)
[2021-10-13] MEDS ORDERED: SMT80CT PO (13:03)
--- NOTE | 2021-10-13 13:04 | Discharge Inst-Women's Service ---
Discharge Inst-Women's Serv Depart Medication/Instructions New, Converted or Re-Newed RX: Transmitted to Pharmacy (oxycodone transmitted previously) Final Diagnosis chronic pelvic pain endometriosis Problems Reviewed?: Yes Consults/Follow Up Additional Follow Up: Yes (1 week and 6-8 weeks) Activity Activity: Activity as Tolerated (no lifting over 25 lbs) Driving Instructions: No Driving for 1 Week NO SMOKING: NO SMOKING Nothing Inside Vagina: No Douching, No [place], No Tampons Diet Discharge Diet: No Restrictions Symptoms to Report to : Swelling Increased, Bleeding Excessive, Pain Increased, Fever Over 101 Degrees F, Vaginal Bleeding Increase, Cramps in Feet or Legs, Vaginal Discharge Foul For Any Problems or Questions: Contact Your Physician Skin/Wound Care Infection Signs and Symptoms: Increased Redness, Foul Odor of Wound, Increased Drainage, Skin Itchy or Has a Rash, Increased Swelling, Temperature Above 101 F Operative Area Clean and Dry: You May Remove Bandage (in 3 days, or if soiled/wet) Stitches/[place]/Dermabond: Dermabond Bathing Instructions: RONAL Lopez DO Oct 13, 2021 13:04
[2021-10-13] MEDS ORDERED: ACETAMINOPHEN 500 MG TAB (TYLENOL) PO SCH (14:00)
[2021-10-13] MEDS ORDERED: traZODone 50 MG (DESYREL) TAB PO SCH (21:00)
[2021-10-14] MEDS ORDERED: IBUPROFEN 600 MG (MOTRIN) TAB PO SCH (12:00)
== END 2021-10-13 17:00 | disposition home or self-care (01) ==
LOC: SDC 06:05 → WS 10:06 → SDC 17:00
PROVIDERS: ATTEND Obstetrics & Gynecology
DX: N80.0 Endometriosis of uterus (principal); N72 Inflammatory disease of cervix uteri; N80.3 Endometriosis of pelvic peritoneum; N76.0 Acute vaginitis; N73.6 Female pelvic peritoneal adhesions (postinfective); G89.29 Other chronic pain; F17.210 Nicotine dependence, cigarettes, uncomplicated
CPT/HCPCS: 36415; 81000; 84703; 85027; 86850; 86900; 86901; 87081; 88307